=== PATIENT | male | born 1980 | race African-American/Black ===

== ENCOUNTER 2024-12-15 08:37 | Inpatient (IN) | payer OTHER ==
[~2024-12-15] VITALS: Ht 185.4 cm; Wt 192.8 kg
[2024-12-15] MEDS: MORPHINE SULFATE 4 MG/ML INJ (FOR IV/IM USE) IV STA (09:28)
[2024-12-15 10:01] LABS: BASOPHILS % 0.6 % (0.0-2.0); EOSINOPHILS % 3.4 % (0.0-5.0); HEMATOCRIT. 39.9 % (42.0-52.0); HEMOGLOBIN. 13.3 g/dL (14.0-18.0); MEAN CORPUSCULAR HEMOGLOBIN 27.8 pg (28.0-32.0); MEAN CORPUSCULAR HGB CONC 33.4 g/dL (31.0-37.0); MEAN CORPUSCULAR VOLUME 83.3 fL (80.0-94.0); MEAN PLATELET VOLUME 8.2 fl (7.4-10.4); MONOCYTES % 11.2 % (2.0-8.0); NEUTROPHILS % 48.8 % (40.0-76.0); PLATELET 284 x1000/uL (130-400); RED BLOOD CELL COUNT 4.79 mill/uL (4.7-6.1); RED CELL DISTRIBUTION WIDTH 16.2 % (11.6-14.6); WHITE BLOOD COUNT 6.4 x1000/uL (4.5-11.0)
[2024-12-15 10:09] LABS: CARBON DIOXIDE 29 mEq/L (21-32); CHLORIDE 105 mEq/L (98-107); SODIUM 138 mEq/L (136-145)
[2024-12-15 10:10] LABS: CALCIUM 8.9 mg/dL (8.7-10.4)
[2024-12-15 10:15] LABS: GLUCOSE 96 mg/dL (70-105); TROPONIN I HIGH SENSITIVITY 19 ng/L (3.0-53); UREA NITROGEN BLOOD 8 mg/dL (9-23)
[2024-12-15 12:10] LABS: THYROID STIMULATING HORMONE 0.82 uIU/mL (0.55-4.78)
[2024-12-15 12:15] LABS: TROPONIN I HIGH SENSITIVITY 17 ng/L (3.0-53)
[2024-12-15 12:41] VITALS: BP 171/88; PULSE 86; RESP 18; TEMP 36.6
[2024-12-15] MEDS ORDERED: LEVA15HF6 IH (12:59)
[2024-12-15] MEDS: AMLODIPINE 10MG TABLET PO SCH (13:33)
[2024-12-15] MEDS ORDERED: HYDRALAZINE 20MG/ML VIAL IV PRN (13:45)
[2024-12-15] MEDS: FUROSEMIDE 40MG/4ML VIAL IVP SCH (14:54)
[2024-12-15] MEDS: LOSARTAN 50 MG TABLET PO SCH (14:54)
[2024-12-15 16:00] VITALS: BP 158/81; PULSE 70; RESP 18; TEMP 36.6; O2SAT 99
[2024-12-15] MEDS ORDERED: HYDROCODONE/ACETAMINOPHEN 5/325MG TABLET PO PRN (17:45)
[2024-12-15] MEDS ORDERED: IPRATROPIUM/ALBUTEROL 0.5-3(2.5)MG/3ML NEB HHN PRN (17:45)
[2024-12-15] MEDS ORDERED: ONDANSETRON HCL 4MG/2ML INJ IV PRN (17:45)
[2024-12-15] MEDS ORDERED: ACETAMINOPHEN 325MG TABLET PO PRN (17:45)
[2024-12-15 19:17] LABS: CLARITY URINE CLEAR (CLEAR); COLOR URINE YELLOW (YELLOW); GLUCOSE URINE NEGATIVE (NEGATIVE); KETONES URINE TRACE (NEGATIVE); LEUKOCYTE ESTERASE URINE NEGATIVE (NEGATIVE); NITRITE URINE NEGATIVE (NEGATIVE); OCCULT BLOOD URINE NEGATIVE (NEGATIVE); PROTEIN URINE TRACE (NEGATIVE); SPECIFIC GRAVITY URINE 1.026 (1.005-1.030)
[2024-12-15 19:24] LABS: *AMPHETAMINES SCREEN URINE NEGATIVE (NEGATIVE); *BARBITURATES SCREEN URINE NEGATIVE (NEGATIVE); *BENZODIAZEPINES SCREEN URINE NEGATIVE (NEGATIVE); *COCAINE SCREEN URINE NEGATIVE (NEGATIVE); CANNABINOID URINE SCREEN NEGATIVE (NEGATIVE); ECSTASY MDMA SCREEN URINE NEGATIVE (NEGATIVE); METHADONE URINE SCREEN NEGATIVE (NEGATIVE); OPIATES URINE SCREEN PRESUMPTIVE POSITIVE (NEGATIVE); PHENCYCLIDINE URINE SCREEN NEGATIVE (NEGATIVE)
[2024-12-15 20:06] LABS: BACTERIA URINE NONE SEEN; RBC URINE NONE SEEN /hpf (0-2); SQUAMOUS EPITHELIAL CELL URINE RARE /lpf (RARE/1+); WBC URINE NONE SEEN /hpf (0-2)
[2024-12-15] MEDS: ENOXAPARIN 40MG/0.4ML SYR SUBCUT SCH (20:17)
[2024-12-15 20:26] VITALS: BP 184/106; PULSE 74; RESP 17; TEMP 36.5; O2SAT 98
[2024-12-15 21:20] VITALS: BP 155/80
[2024-12-15 23:47] VITALS: BP 145/92; PULSE 77; RESP 15; TEMP 36.5; O2SAT 99
[2024-12-16 04:11] VITALS: BP 141/90; PULSE 72; RESP 16; TEMP 36.5; O2SAT 96
[2024-12-16 08:00] VITALS: BP 145/95; PULSE 93; RESP 20; TEMP 36.1; O2SAT 98
[2024-12-16 08:02] LABS: BASOPHILS % 0.5 % (0.0-2.0); HEMATOCRIT. 41.7 % (42.0-52.0); HEMOGLOBIN. 13.7 g/dL (14.0-18.0); LYMPHOCYTES % 34.5 % (20.0-50.0); MEAN CORPUSCULAR HEMOGLOBIN 27.4 pg (28.0-32.0); MEAN CORPUSCULAR HGB CONC 32.8 g/dL (31.0-37.0); MEAN CORPUSCULAR VOLUME 83.6 fL (80.0-94.0); MEAN PLATELET VOLUME 8.5 fl (7.4-10.4); MONOCYTES % 11.2 % (2.0-8.0); NEUTROPHILS % 50.8 % (40.0-76.0); PLATELET 295 x1000/uL (130-400); RED BLOOD CELL COUNT 4.99 mill/uL (4.7-6.1); RED CELL DISTRIBUTION WIDTH 16.3 % (11.6-14.6)
[2024-12-16 08:15] LABS: CARBON DIOXIDE 31 mEq/L (21-32); CHLORIDE 101 mEq/L (98-107); POTASSIUM 4.2 mEq/L (3.5-5.1); SODIUM 139 mEq/L (136-145)
[2024-12-16] MEDS: ASPIRIN 81MG EC TABLET PO SCH (08:15)
[2024-12-16 08:16] LABS: CALCIUM 10.1 mg/dL (8.7-10.4)
[2024-12-16 08:20] LABS: CREATININE 1.1 mg/dL (0.6-1.3); GLUCOSE 98 mg/dL (70-105)
[2024-12-16 08:21] LABS: LDL CHOLESTEROL 142 mg/dL (5-100); TRIGLYCERIDE 115 mg/dL (0-150); UREA NITROGEN BLOOD 11 mg/dL (9-23)
[2024-12-16 08:22] LABS: CHOLESTEROL 206 mg/dL (<200)
[2024-12-16 08:23] LABS: HDL CHOLESTEROL 44 mg/dL (>55); TROPONIN I HIGH SENSITIVITY 14 ng/L (3.0-53)
[2024-12-16] MEDS ORDERED: NALOXONE HCL 0.4MG/ML VIAL IV PRN (09:00)
[2024-12-16] MEDS ORDERED: LOSA100T33 MT (11:20)
[2024-12-16 11:47] VITALS: BP 116/71; PULSE 96; TEMP 97.2; O2SAT 97
[2024-12-16 11:50] VITALS: BP 116/71; PULSE 96; RESP 20; TEMP 36.2; O2SAT 97
[2024-12-16] MEDS ORDERED: LIP40 MT (12:51)
[2024-12-16] MEDS ORDERED: ATORVASTATIN CALCIUM 40MG TABLET PO SCH (21:00)
== END 2024-12-16 13:45 | disposition home or self-care (01) | DRG 305 ==
LOC: ER 09:10 → 8WST 10:54 → EDBEDREQ 11:14 → EDBEDREQTM 11:14
PROVIDERS: ADMIT Internal Medicine; ATTEND Internal Medicine
DX: I16.0 Hypertensive urgency (principal); Z68.43 Body mass index [BMI] 50.0-59.9, adult; R07.89 Other chest pain; E66.01 Morbid (severe) obesity due to excess calories; I10 Essential (primary) hypertension; E78.5 Hyperlipidemia, unspecified; J45.909 Unspecified asthma, uncomplicated
CPT/HCPCS: 36415; 71045; 80048; 80061; 80305; 81003; 83036; 83735; 83880; 84439; 84443; 84481; 84484; 85025; 93005; 93306; 93970; 99285; J1650; J1940; J2270